=== PATIENT | male | born 1955 | race Caucasian/White ===

== ENCOUNTER 2021-04-29 23:00 | Emergency (ER) | payer OTHER ==
[~2021-04-29 23:00] MED LIST: FENTANYL TOP; MEDROL 4MG DOSEP4 MG PO; METFORMIN HCL500 MG PO; NORCO 5-325 TA1 EACH PO; PERCOCET 5-3251 EACH PO; ZOCOR20 MG PO
[2021-04-30] MEDS ORDERED: IBUPROFEN800 MG PO (06:53)
[2021-04-30] MEDS ORDERED: NORCO 5-325 TA1 EACH PO (06:53)
[2021-04-30] MEDS ORDERED: CYCLOBENZAPRINE10 MG PO (06:53)
== END 2021-04-30 07:30 | disposition home or self-care (01) ==
LOC: FER 23:00
DX: M54.16 Radiculopathy, lumbar region (principal); E11.9 Type 2 diabetes mellitus without complications; Z79.84 Long term (current) use of oral hypoglycemic drugs
CPT/HCPCS: 72110; 96372; J1030; J1170; J1885

== ENCOUNTER 2021-06-21 08:28 | Emergency (ER) | payer OTHER ==
[~2021-06-21 08:28] MED LIST changes: +CYCLOBENZAPRINE10 MG PO; +IBUPROFEN800 MG PO
[2021-06-21 09:53] LABS: BILIRUBIN NEGATIVE (NEGATIVE); BLOOD NEGATIVE Ery/uL (NEGATIVE); CLARITY CLEAR (CLEAR); COLOR YELLOW (YELLOW); GLUCOSE (U) NORMAL (NORMAL); LEUKOCYTES NEGATIVE Leu/uL (NEGATIVE); NITRITE NEGATIVE (NEGATIVE); PROTEIN NEGATIVE (NEGATIVE); SPECIFIC GRAVITY 1.025 (1.001-1.030)
== END 2021-06-21 11:20 | disposition home or self-care (01) ==
LOC: FER 08:28
PROVIDERS: Emergency Medicine
DX: N43.3 Hydrocele, unspecified (principal); G89.29 Other chronic pain; M54.50 Low back pain, unspecified; E11.9 Type 2 diabetes mellitus without complications; I10 Essential (primary) hypertension; Z79.84 Long term (current) use of oral hypoglycemic drugs; Z79.899 Other long term (current) drug therapy
CPT/HCPCS: 76870; 81003; J1885

== ENCOUNTER 2022-01-14 08:42 | Emergency (ER) | payer OTHER ==
[~2022-01-14 08:42] MED LIST changes: +NEURONTIN300 MG PO
[2022-01-14 10:31] LABS: BASOPHIL 0.6 % (0-2); EOSINOPHIL 1.2 % (0-7); HCT 42.7 % (42.0-52.0); HGB 14.5 g/dl (13.2-18.0); LYMPHOCYTE 16.1 % (15-48); MCV 94.3 fL (78.0-100.0); MONOCYTE 5.8 % (0-12); MPV 10.6 fL (6.0-9.5); NEUTROPHIL 76.1 % (41-80); NRBC 0; PLT 213 K/uL (150-400); RBC 4.53 M/uL (4.70-6.00); RDW 11.9 % (11.5-14.0); WBC 5.2 K/uL (4.0-10.5)
[2022-01-14 10:32] LABS: ALBUMIN 3.9 g/dL (3.4-5.0); BILIRUBIN NEGATIVE (NEGATIVE); BILIRUBIN - TOTAL 0.5 mg/dL (0.2-1.0); BLOOD NEGATIVE Ery/uL (NEGATIVE); BUN/CREAT RATIO (CALC) 16.5 RATIO; CLARITY CLEAR (CLEAR); COLOR YELLOW (YELLOW); CREATININE 0.79 mg/dL (0.67-1.17); GLOBULIN (CALCULATION) 3.6 g/dL; GLUCOSE (U) NORMAL (NORMAL); LEUKOCYTES NEGATIVE Leu/uL (NEGATIVE); NITRITE NEGATIVE (NEGATIVE); POTASSIUM 3.8 mmol/L (3.5-5.1); PROTEIN NEGATIVE (NEGATIVE); SPECIFIC GRAVITY >=1.030 (1.001-1.030); TOTAL PROTEIN 7.5 g/dL (6.4-8.2); UROBILINOGEN 0.2 mg/dL (0.2-1.0)
== END 2022-01-14 11:20 | disposition home or self-care (01) ==
LOC: FER 08:42
PROVIDERS: Internal Medicine
DX: M54.50 Low back pain, unspecified (principal); G89.29 Other chronic pain; E11.9 Type 2 diabetes mellitus without complications; Z79.84 Long term (current) use of oral hypoglycemic drugs
CPT/HCPCS: 36415; 72131; 80053; 81003; 85025; J1170